=== PATIENT | female | born 1985 | race Caucasian/White ===

== ENCOUNTER 2017-06-19 03:59 | Emergency (ER) | payer BC ==
[~2017-06-19] VITALS: Ht 152.4 cm; Wt 80.8 kg
[2017-06-19 04:39] LABS: HEMATOCRIT 41.8 % (36.0-46.0); HEMOGLOBIN 14.5 G/DL (11.9-15.5); MCH 31.3 PG (29.0-34.0); MCHC 34.7 G/DL (30.0-36.0); MCV 90.1 FL (83-99); PLATELET COUNT 225 K/uL (156-360); RBC DIS.WIDTH-CV 12.8 % (11.8-14.6); RED BLOOD COUNT 4.64 M/uL (3.80-5.20); WHITE BLOOD COUNT 6.6 K/uL (4.1-10.2)
[2017-06-19 04:48] LABS: CHLORIDE 106 mEq/L (99-109); POTASSIUM 3.9 mEq/L (3.7-5.4); SODIUM 138 mEq/L (136-147)
[2017-06-19 04:50] LABS: GLUCOSE 89 mg/dL (70-99); TOTAL PROTEIN 6.8 g/dL (6.4-8.3)
[2017-06-19 04:52] LABS: TOTAL BILIRUBIN 0.2 mg/dL (0.0-1.0)
[2017-06-19 04:53] LABS: ALKALINE PHOSPHATASE 50 IU/L (3-129)
[2017-06-19 04:54] LABS: CREATININE 0.7 mg/dL (0.6-1.3); GFR ESTIMATE (CALCULATED) > 59 mL/min/
[2017-06-19 04:55] LABS: AST (GOT) 13 IU/L (2-34); UREA NITROGEN (BUN) 13 mg/dL (9-23)
[2017-06-19 04:56] LABS: ALT (GPT) 22 IU/L (3-49)
[2017-06-19] MEDS ORDERED: NORCO 5/3251 TABLET PO (08:19)
[2017-06-19 08:25] VITALS: BP 155/105
[2017-06-19 08:25] LABS: APPEARANCE SL.HAZY ((CLEAR)); BILIRUBIN NEGATIVE; BLOOD LARGE; GLUCOSE (STRIP) NEGATIVE; KETONES NEGATIVE; LEUKOCYTES TRACE; NITRITE NEGATIVE; PROTEIN (STRIP) 100; SPECIFIC GRAVITY 1.026 (1.000-1.030); UROBILINOGEN 0.2 MG/DL (0.2-1.0)
[2017-06-19 08:26] LABS: COLOR LT.RED ((YELLOW))
[2017-06-19 08:46] LABS: BACTERIA 1+ /HPF; EPITHELIAL CELLS RARE /HPF; MUCUS NONE SEEN /LPF; RED BLOOD CELLS TNTC /HPF (0-5); UCUL ADDED? YES; WHITE BLOOD CELLS 0-5 /HPF (0-5)
== END 2017-06-19 08:27 | disposition home or self-care (01) ==
LOC: EME 03:59
DX: O03.9 Complete or unspecified spontaneous abortion without complication (principal); E78.5 Hyperlipidemia, unspecified; F17.200 Nicotine dependence, unspecified, uncomplicated; Z86.711 Personal history of pulmonary embolism
CPT/HCPCS: 76856; 80053; 81003; 84702; 85027; 87086; 99281; 99283